=== PATIENT | male | born 1995 | race Caucasian/White ===

== ENCOUNTER 2016-10-26 09:04 | Emergency (ER) | payer OTHER ==
[~2016-10-26] VITALS: Ht 188 cm; Wt 81.8 kg
[2016-10-26 09:09] VITALS: BP 137/81; PULSE 78; TEMP 98.1
== END 2016-10-26 10:33 | disposition home or self-care (01) ==
LOC: COL.ER 09:04
DX: S06.0X1A Concussion with loss of consciousness of 30 minutes or less, initial encounter (principal); S01.81XA Laceration without foreign body of other part of head, initial encounter; Z23 Encounter for immunization; W01.198A Fall on same level from slipping, tripping and stumbling with subsequent striking against other object, initial encounter; Y92.009 Unspecified place in unspecified non-institutional (private) residence as the place of occurrence of the external cause